=== PATIENT | male | born 1975 | race Two or more races ===

== ENCOUNTER 2020-02-07 07:06 | Emergency (ER) | payer SELFPAY ==
[~2020-02-07] VITALS: Ht 177.8 cm; Wt 90.0 kg
[2020-02-07] MEDS ORDERED: KETOROLAC 30MG/ML VIAL IM ONE (10:15)
[2020-02-07] MEDS ORDERED: ACETAMINOPHEN 325MG TABLET PO ONE (10:30)
[2020-02-07 11:55] VITALS: BP 124/68
== END 2020-02-07 12:15 | disposition home or self-care (01) ==
LOC: ER 07:06
DX: J06.9 Acute upper respiratory infection, unspecified (principal)
CPT/HCPCS: 71045; 96372; 99283; J1885

== ENCOUNTER 2023-04-30 22:14 | Emergency (ER) | payer MEDICAID ==
[~2023-04-30] VITALS: Ht 175.3 cm; Wt 93.0 kg
[2023-04-30 22:55] LABS: BASOPHILS % 0.4 % (0.0-2.0); EOSINOPHILS % 0.9 % (0.0-5.0); HEMATOCRIT. 43.7 % (42.0-52.0); LYMPHOCYTES % 16.9 % (20.0-50.0); MEAN CORPUSCULAR HEMOGLOBIN 31.4 pg (28.0-32.0); MEAN CORPUSCULAR VOLUME 91.5 fL (80.0-94.0); MEAN PLATELET VOLUME 7.1 fl (7.4-10.4); MONOCYTES % 8.5 % (2.0-8.0); NEUTROPHILS % 73.3 % (40.0-76.0); PLATELET 233 x1000/uL (130-400); RED BLOOD CELL COUNT 4.78 mill/uL (4.7-6.1); RED CELL DISTRIBUTION WIDTH 12.9 % (11.6-14.6)
[2023-04-30 23:04] LABS: CLARITY URINE CLEAR (CLEAR); COLOR URINE YELLOW (YELLOW); KETONES URINE NEGATIVE (NEGATIVE); LEUKOCYTE ESTERASE URINE NEGATIVE (NEGATIVE); NITRITE URINE NEGATIVE (NEGATIVE); OCCULT BLOOD URINE NEGATIVE (NEGATIVE); PROTEIN URINE NEGATIVE (NEGATIVE); SPECIFIC GRAVITY URINE 1.025 (1.005-1.030)
[2023-04-30 23:05] LABS: CHLORIDE 105 mEq/L (98-107)
[2023-05-01 00:15] VITALS: BP 109/68
[2023-05-01] MEDS ORDERED: PREDNISONE 20MG TABLET PO ONE (00:15)
[2023-05-01] MEDS ORDERED: HYDROCODONE/ACETAMINOPHEN 5/325MG TABLET PO ONE (00:15)
[2023-05-01] MEDS ORDERED: CYCLOBENZAPRINE 10MG TABLET PO ONE (00:15)
[2023-05-01] MEDS ORDERED: HYDR-4001 MT (01:59)
== END 2023-05-01 02:30 | disposition home or self-care (01) ==
LOC: ER 22:14
DX: S39.012A Strain of muscle, fascia and tendon of lower back, initial encounter (principal); X58.XXXA Exposure to other specified factors, initial encounter; Y93.89 Activity, other specified; Y92.89 Other specified places as the place of occurrence of the external cause; Y99.8 Other external cause status
CPT/HCPCS: 36415; 74176; 80053; 81003; 85025; 99284; J7512